=== PATIENT | male | born 1985 | race Caucasian/White ===

== ENCOUNTER 2018-05-22 16:45 | Emergency (ER) | payer BC ==
[2018-05-22 18:13] VITALS: BP 132/77
--- NOTE | 2018-05-22 22:06 | UC ---
HPI Febrile Illness - HPI Summary HPI Summary: Pt. is a 32 y.o male who presents to the ER for fever and sore throat x several days. Pt. notes fever over 100F that improved with motrin. NO past medical hx. Pt. does note strep infections as a child. Sxs are mild in severity. No current modifying factors. - History of Current Complaint Chief Complaint: UCRespiratory Time Seen by Provider: 05/22/18 18:19 Hx Obtained From: Patient Pain Intensity: 4 Pain Scale Used: 0-10 Numeric - Allergy/Home Medications Allergies/Adverse Reactions: Allergies Allergy/AdvReac Type Severity Reaction Status Date / Time No Known Allergies Allergy Verified 05/22/18 18:13 Home Medications: Home Medications Ibuprofen TAB* [Advil TAB*] 400 mg PO Q6H PRN 05/22/18 [History Confirmed ] Multivitamin [Multiple Vitamins] 1 tab PO DAILY 05/22/18 [History Confirmed 07/09] PMH/Surg Hx/FS Hx/Imm Hx Previously Healthy: Yes - Surgical History Surgical History: None - Family History Known Family History: Positive: Non-Contributory - Social History Occupation: Employed Full-time Lives: With Family Alcohol Use: Weekly Substance Use Type: None Smoking Status (MU): Heavy Every Day Tobacco Smoker Amount Used/How Often: pt vapes jewl daily -several times contains nicotine Have You Smoked in the Last Year: Yes Review of Systems All Other Systems Reviewed And Are Negative: Yes Constitutional: Positive: Fever Skin: Positive: Negative Eyes: Positive: Negative ENT: Positive: Sore Throat, Sinus Congestion Respiratory: Positive: Negative Cardiovascular: Positive: Negative Gastrointestinal: Positive: Negative Neurological: Positive: Headache Is Patient Immunocompromised?: Yes Physical Exam Triage Information Reviewed: Yes Appearance: Well-Appearing - Pt. sitting on exam table in NAD. S.O. present. Vital Signs: Initial Vital Signs Temp 98 F 05/22/18 18:09 Pulse 75 05/22/18 18:09 Resp 14 05/22/18 18:09 BP 132/77 05/22/18 18:09 Pulse Ox 98 05/22/18 18:09 Eyes: Positive: Conjunctiva Clear ENT: Positive: TMs normal, Other - Oral pharynx injected with moderate bilateral tonsilar edema with excudates. Uvula is midline without deviation or edema. No muffled voice or trismus. Neck: Positive: Other: - Bilateral posterior and anterior cervical lymphadenopathy. Respiratory: Positive: Lungs clear Cardiovascular: Positive: RRR Musculoskeletal Exam: Normal Neurological Exam: Normal Psychological Exam: Normal Skin Exam: Normal Course/Dx - Course Course Of Treatment: Pt. presenting with fever, cervical lymphadenopathy and excudates. Overall well appearing with stable VS> Rapid strep is negative. Given sxs and exam will tx for suspected bacterial pharyngitis with amoxicillin. To increase fluids and rest. Tylenol or motrin for pain and fever as directed. F.u with [facility]. To return to if sxs change or worsen. Pt. understands and agrees with plan. - Febrile Illness Differential Diagnoses: Abscess, Cellulitis, Sepsis - Diagnoses Provider Diagnosis: Bacterial pharyngitis Discharge - Sign-Out/Discharge Documenting (check all that apply): Patient Departure All imaging exams completed and their final reports reviewed: No Studies - Discharge Plan Condition: Good Disposition: HOME Prescriptions: Amoxicillin PO (*) [Amoxicillin 500 MG CAP*] 500 mg PO Q12H #20 cap Patient Education Materials: Pharyngitis (ED) Referrals: [facility] [Outside] Additional Instructions: Schedule a follow up appointment with the [facility] Take antibiotic as directed Tylenol or Motrin for pain and fever as directed Increase fluids and rest Return to if symptoms change or worsen - Billing Disposition and Condition Condition: GOOD Disposition: Home
== END 2018-05-22 19:03 | disposition home or self-care (01) ==
LOC: UCCORT 16:45
DX: J02.8 Acute pharyngitis due to other specified organisms (principal); F17.210 Nicotine dependence, cigarettes, uncomplicated
CPT/HCPCS: 87651; 99202; G0463